=== PATIENT | male | born 1995 | race Two or more races ===

== ENCOUNTER 2018-10-21 15:11 | Emergency (ER) | payer MEDICAID ==
[~2018-10-21] VITALS: Ht 170.2 cm; Wt 105.0 kg
[2018-10-21 17:27] VITALS: BP 137/81
== END 2018-10-21 17:32 | disposition short-term general hospital (02) ==
LOC: ER 15:11 → EDBD 15:11 → ER 17:32
DX: S06.899A Other specified intracranial injury with loss of consciousness of unspecified duration, initial encounter (principal); S16.1XXA Strain of muscle, fascia and tendon at neck level, initial encounter; M54.89 Other dorsalgia; S00.81XA Abrasion of other part of head, initial encounter; S40.212A Abrasion of left shoulder, initial encounter; S40.812A Abrasion of left upper arm, initial encounter; V00.831A Fall from motorized mobility scooter, initial encounter; Y93.89 Activity, other specified; Y92.410 Unspecified street and highway as the place of occurrence of the external cause
CPT/HCPCS: 70486; 99285

== ENCOUNTER 2022-08-26 05:28 | Emergency (ER) | payer MEDICAID, OTHER ==
[~2022-08-26] VITALS: Ht 170.2 cm; Wt 98.1 kg
[2022-08-26] MEDS ORDERED: TRAMADOL 50MG TABLET PO ONE (06:45)
[2022-08-26 06:53] VITALS: BP 150/99
[2022-08-26] MEDS ORDERED: METH-774 MT (07:13)
== END 2022-08-26 07:44 | disposition home or self-care (01) ==
LOC: ER 05:28
DX: M25.561 Pain in right knee (principal); M54.50 Low back pain, unspecified
CPT/HCPCS: 99283